=== PATIENT | female | born 1965 | race African-American/Black ===

== ENCOUNTER 2018-09-21 18:07 | Inpatient (IN) | payer OTHER ==
[~2018-09-21] VITALS: Ht 162.6 cm; Wt 110.7 kg
--- NOTE | ~2018-09-21 | EKG ---
[address] [address] ELECTROCARDIOGRAM REPORT Name: LEONID BRYANT Room #: 357-[facility] IN ..#: [id number] Admission: 09/21/18 Attend Phys: Gamal Hameed MD Discharge: 09/22/18 Date of : 65 Report #: [id number] THIS REPORT FOR: //name// [facility] ED Test Date: 2018-09-21 Test Time: 18:20:04 Pat Name: LEONID BRYANT Department: Room: [facility] Gender: F Lurer: W[place] : 1965 Requested By: Ashok Akhtar Order Number: [id number] MD: Nathaniel Colby Measurements Intervals [place] Rate: 78 P: 39 [place]: 183 QRS: -14 QRSD: 100 T: QT: 534 QTc: 609 Interpretive Statements Sinus rhythm Abnormal R-wave progression, late transition Borderline T abnormalities, nonspecific diffuse leads Compared to ECG 02/06/2013 06:02:05 T-wave abnormality still present Electronically Signed On 09-23-2018 11:09:02 COMPRESSOR SERVICE TECHNICIAN by Nathaniel Colby [email or web address] <ELECTRONICALLY SIGNED> By: Nathaniel Colby MD 09/23/18 1109 19 19 Nathaniel Colby MD /EPI
[~2018-09-21 18:07] MED LIST: ATENOLOL 50 MG50 M1 PO; GLUCOPHAGE500 MG PO; NAPROSYN500 MG PO; NEURONTIN 300M300 M2 PO; NORCO 5-325 TA1 EACH PO; TRIAMTERENE/HCT1 CA1 PO
[2018-09-21 18:08] VITALS: BP 128/75
[2018-09-21 19:43] LABS: ABSOLUTE NEUTROPHILS 4.8 thou/uL (1.4-8.2); BASOPHILS 1.2 % (0.0-2.0); HEMATOCRIT 28.9 % (37.0-47.0); HEMOGLOBIN 9.6 gm/dL (12.0-15.0); LYMPHOCYTES 24.9 % (24.0-44.0); MCH 27.9 pg (26.0-34.0); MCHC 33.2 g/dL (28.0-37.0); MONOCYTES 7.3 % (1.0-8.0); PLATELET COUNT 275 thou/uL (150-400); POLYS 65.6 % (36.0-66.0); RBC 3.45 mil/uL (4.20-5.00); RDW 15.5 % (10.5-14.5); WBC 7.3 thou/uL (4.0-11.0)
[2018-09-21 19:51] LABS: ANION GAP 11 mmol/L (7-16); BUN 15 mg/dL (7-18); CALCIUM 6.7 mg/dL (8.5-10.1); CHLORIDE 110 mmol/L (98-107); CO2 22 mmol/L (21-32); GLUCOSE 131 mg/dL (74-106); SODIUM 143 mmol/L (136-145)
[2018-09-21 19:53] LABS: POTASSIUM 2.7 mmol/L (3.5-5.1)
[2018-09-21 19:58] LABS: ALBUMIN 2.3 g/dL (3.4-5.0); LIPASE 62 U/L (73-393); SGOT 14 U/L (15-37); SGPT 18 U/L (30-65); TOTAL BILIRUBIN 0.2 mg/dL (<0.1-1.0); TOTAL PROTEIN 4.9 g/dL (6.4-8.2); TROPONIN-I <0.06 ng/mL (<0.06)
[2018-09-21 20:38] LABS: URINE BILIRUBIN NEGATIVE (Negative); URINE BLOOD TRACE (Negative); URINE CLARITY CLEAR; URINE COLOR YELLOW; URINE GLUCOSE-RANDOM* NEGATIVE (Negative); URINE KETONES NEGATIVE (Negative); URINE LEUKOCYTES-REFLEX 1+ (Negative); URINE NITRITE-REFLEX NEGATIVE (Negative); URINE PROTEIN (DIPSTICK) NEGATIVE (Negative); URINE UROBILINOGEN 0.2 E.U./dl (0.2-1.0)
[2018-09-21 20:53] LABS: URINE WBC-REFLEX 6-15 Few /HPF (0-5)
[2018-09-21 20:54] LABS: BACTERIA-REFLEX 1-9 Few /HPF (None Seen); CASTS None Seen /LPF (None Seen); CRYSTALS None Seen /LPF (None Seen); SQUAMOUS None Seen /LPF (0-3); URINE RBC 0-2 Rare /HPF (0-2)
[2018-09-21] MEDS ORDERED: PRAVACHOL40 MG PO (22:19)
[2018-09-21 22:30] VITALS: BP 111/67
[2018-09-21 22:35] VITALS: BP 111/67
[2018-09-22 04:56] VITALS: BP 104/61
[2018-09-22 07:29] LABS: HEMATOCRIT 35.7 % (37.0-47.0); HEMOGLOBIN 11.4 gm/dL (12.0-15.0); MCH 27.2 pg (26.0-34.0); MCV 84.8 fL (80.0-100.0); RBC 4.21 mil/uL (4.20-5.00); RDW 15.5 % (10.5-14.5); WBC 7.1 thou/uL (4.0-11.0)
[2018-09-22 07:38] VITALS: BP 125/91
[2018-09-22 07:53] LABS: CALCIUM 8.6 mg/dL (8.5-10.1); CREATININE 1.2 mg/dL (0.6-1.0)
[2018-09-22 07:54] LABS: POTASSIUM 4.5 mmol/L (3.5-5.1)
[2018-09-22] MEDS ORDERED: CEFUROXIME250 MG PO (09:07)
[2018-09-22 09:09] VITALS: BP 125/91
== END 2018-09-22 12:49 | disposition home or self-care (01) | DRG 690 ==
LOC: ER 18:07 → EROBS 21:53 → 3W 22:55
PROVIDERS: Emergency Medicine; Nurse Practitioner Family
DX: N39.0 Urinary tract infection, site not specified (principal); E87.6 Hypokalemia; I10 Essential (primary) hypertension; E11.9 Type 2 diabetes mellitus without complications; Z88.8 Allergy status to other drugs, medicaments and biological substances; E11.40 Type 2 diabetes mellitus with diabetic neuropathy, unspecified; T50.2X5A Adverse effect of carbonic-anhydrase inhibitors, benzothiadiazides and other diuretics, initial encounter; Z90.49 Acquired absence of other specified parts of digestive tract; Z88.2 Allergy status to sulfonamides; Z85.51 Personal history of malignant neoplasm of bladder; Z98.84 Bariatric surgery status; Z79.899 Other long term (current) drug therapy
CPT/HCPCS: 10879

== ENCOUNTER 2018-10-16 11:17 | Emergency (ER) | payer OTHER ==
[~2018-10-16] VITALS: Ht 162.6 cm; Wt 111.1 kg
[~2018-10-16 11:17] MED LIST changes: +CEFUROXIME250 MG PO; +PRAVACHOL40 MG PO
[2018-10-16] MEDS ORDERED: ATENOLOL 100MG100 MG PO (12:04)
[2018-10-16] MEDS ORDERED: KEFLEX500 M1 PO (12:05)
[2018-10-16] MEDS ORDERED: NORVASC5 MG PO (12:06)
[2018-10-16] MEDS ORDERED: ZOFRAN ODT4 MG DISSOLVE (12:07)
[2018-10-16 12:14] LABS: ABSOLUTE NEUTROPHILS 3.3 thou/uL (1.4-8.2); BASOPHILS 0.9 % (0.0-2.0); EOSINOPHILS 2.3 % (0.0-3.0); HEMATOCRIT 40.3 % (37.0-47.0); HEMOGLOBIN 13.2 gm/dL (12.0-15.0); LYMPHOCYTES 33.9 % (24.0-44.0); MCH 27.6 pg (26.0-34.0); MCHC 32.7 g/dL (28.0-37.0); MCV 84.4 fL (80.0-100.0); MONOCYTES 9.2 % (1.0-8.0); PLATELET COUNT 374 thou/uL (150-400); POLYS 53.7 % (36.0-66.0); RBC 4.78 mil/uL (4.20-5.00); RDW 16.6 % (10.5-14.5); WBC 6.2 thou/uL (4.0-11.0)
[2018-10-16 12:29] LABS: URINE BILIRUBIN NEGATIVE (Negative); URINE BLOOD TRACE (Negative); URINE CLARITY CLEAR; URINE COLOR YELLOW; URINE GLUCOSE-RANDOM* NEGATIVE (Negative); URINE KETONES NEGATIVE (Negative); URINE NITRITE-REFLEX NEGATIVE (Negative); URINE PROTEIN (DIPSTICK) NEGATIVE (Negative); URINE SPECIFIC GRAVITY <= 1.005 (1.005-1.035)
[2018-10-16 12:30] LABS: URINE LEUKOCYTES-REFLEX 3+ (Negative); URINE UROBILINOGEN 0.2 E.U./dl (0.2-1.0)
[2018-10-16 12:58] LABS: CASTS None Seen /LPF (None Seen); CRYSTALS None Seen /LPF (None Seen); SQUAMOUS 0-3 Few /LPF (0-3); URINE RBC 0-2 Rare /HPF (0-2); URINE WBC-REFLEX >25 Many /HPF (0-5)
[2018-10-16 14:39] LABS: CALCIUM 9.4 mg/dL (8.5-10.1); CREATININE 1.2 mg/dL (0.6-1.0); POTASSIUM 3.6 mmol/L (3.5-5.1)
[2018-10-16] MEDS ORDERED: FLONASE 0.05%50 MCG NASAL (14:56)
[2018-10-16] MEDS ORDERED: ONDANSETRON HCL4 M2 PO (14:56)
[2018-10-16] MEDS ORDERED: NORFLEX100 MG PO (14:56)
[2018-10-16 15:10] VITALS: BP 112/54
== END 2018-10-16 15:10 | disposition home or self-care (01) ==
LOC: ER 11:17
PROVIDERS: Physician Assistant
DX: R09.81 Nasal congestion (principal); R51 Headache; I10 Essential (primary) hypertension; E11.40 Type 2 diabetes mellitus with diabetic neuropathy, unspecified; Z88.2 Allergy status to sulfonamides; Z88.8 Allergy status to other drugs, medicaments and biological substances; Z90.49 Acquired absence of other specified parts of digestive tract; Z85.51 Personal history of malignant neoplasm of bladder

== ENCOUNTER 2020-01-20 17:33 | Inpatient (IN) | payer OTHER ==
[~2020-01-20] VITALS: Ht 162.6 cm; Wt 122.0 kg
--- NOTE | ~2020-01-20 | EKG ---
[facility] [place] [address] ELECTROCARDIOGRAM REPORT Name: LEONID BRYANT Room #: 211-P ADM IN M.R.#: [id number] Admission: 01/20/20 Attend Phys: Amarjit Pierre MD Discharge: Date of : 65 Report #: [id number] THIS REPORT FOR: cc: CINTIA OLIVERA MD, RADHIKA MD Epiphany, Epiphany MD ~ THIS REPORT FOR: //name// [facility] ED Test Date: 2020-01-20 Test Time: 17:51:25 Pat Name: LEONID BRYANT Department: Room: 211 Gender: F Compliance Intern: RADHA : 1965 Requested By: Dominique Trinidad Order Number: [id number] MD: Measurements Intervals [place] Rate: 0 P: 0 MN: QRS: 0 QRSD: T: QT: QTc: 0 Interpretive Statements All 12 leads are missing Compared to ECG 09/21/2018 18:20:04 Sinus rhythm no longer present T-wave abnormality no longer present [email or web address] By: 1751 175 Epiphany EpiphanyMD /EPI
[~2020-01-20 17:33] MED LIST changes: +ATENOLOL 100MG100 MG PO; +FLONASE 0.05%50 MCG NASAL; +KEFLEX500 M1 PO; +NORFLEX100 MG PO; +NORVASC5 MG PO; +ONDANSETRON HCL4 M2 PO; +ZOFRAN ODT4 MG DISSOLVE
[2020-01-20 18:05] LABS: BASOPHILS 1.4 % (0.0-2.0); EOSINOPHILS 2.2 % (0.0-3.0); HEMATOCRIT 40.6 % (37.0-47.0); HEMOGLOBIN 13.4 gm/dL (12.0-15.0); LYMPHOCYTES 37.5 % (24.0-44.0); MCH 28.5 pg (26.0-34.0); MCHC 32.9 g/dL (28.0-37.0); MCV 86.6 fL (80.0-100.0); MONOCYTES 6.9 % (1.0-8.0); PLATELET COUNT 359 thou/uL (150-400); RBC 4.69 mil/uL (4.20-5.00); RDW 15.2 % (10.5-14.5); WBC 7.7 thou/uL (4.0-11.0)
[2020-01-20 18:22] LABS: CALCIUM 8.8 mg/dL (8.5-10.1); CREATININE 1.3 mg/dL (0.6-1.0); POTASSIUM 3.9 mmol/L (3.5-5.1)
[2020-01-20 18:26] LABS: ALBUMIN 3.4 g/dL (3.4-5.0); TOTAL BILIRUBIN 0.2 mg/dL (<0.1-1.0); TOTAL PROTEIN 8.1 g/dL (6.4-8.2)
[2020-01-20 19:10] LABS: APTT 29.3 Seconds (24.5-32.8); PROTIME 9.7 Seconds (9.3-11.4)
[2020-01-20] MEDS ORDERED: KLOR-CON 10 ER10 MEQ PO (19:42)
[2020-01-20] MEDS ORDERED: FAMOTIDINE 20 M20 MG PO (19:43)
[2020-01-20] MEDS ORDERED: ASA81BEC PO (19:43)
[2020-01-20] MEDS ORDERED: TOPROL XL25 MG PO (19:43)
[2020-01-20] MEDS ORDERED: LIPITOR80 MG PO (19:43)
[2020-01-20] MEDS ORDERED: BRILINTA90 MG PO (19:43)
[2020-01-20 19:44] VITALS: BP 128/73
[2020-01-20 19:50] VITALS: BP 126/82
[2020-01-20 20:31] VITALS: BP 124/64
[2020-01-20 20:34] VITALS: BP 130/79
[2020-01-21 00:21] VITALS: BP 104/54
--- NOTE | 2020-01-21 04:42 | NUR ---
PT WAS AN ADMIT FROM ER @ 20:05. PT IS ADMITTED WITH SVT AND CARDIZEM DRIP IN ON. NO SIGN OF DISTRESS NOTED IN PT. PT IS STABLE AND HEART RATE IS CONTROLLED. ADMISSION ASSESSMENT, EDUCATION AND DATA COMPLETED. PT IS ALERT AND ORIENTED. DENIES ANY PAIN. PT HAS A UROSTOMY. CONTINUE TO MONITOR PT. DENIES ANY FURTHER NEEDS AT THIS TIME.
[2020-01-21 05:34] VITALS: BP 105/53
[2020-01-21 07:35] LABS: CALCIUM 8.4 mg/dL (8.5-10.1); CREATININE 1.2 mg/dL (0.6-1.0); POTASSIUM 4.1 mmol/L (3.5-5.1)
[2020-01-21 07:50] VITALS: BP 124/58
--- NOTE | 2020-01-21 08:34 | EKG ---
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 : 1965 Requested By: Rayshawn Barrera Order Number: [id number] MD: Pelon Kent Measurements Intervals [place] Rate: 172 P: 38 MD: 225 QRS: -22 QRSD: 91 T: 59 QT: 269 QTc: 455 Interpretive Statements Supraventricular tachycardia Borderline left axis deviation ST depression, probably rate related Baseline wander in lead(s) V4,V5 Compared to ECG 09/21/2018 18:20:04 SVT has replaced sinus rhythm Electronically Signed On 01-21-2020 8:32:51 CDT by Pelon Kent [email or web address] <ELECTRONICALLY SIGNED> By: Pelon [place] MD, FAC 01/21/20 0832 1738 1738 Pelon [place] MD, [facility] /EPI
--- NOTE | 2020-01-21 08:40 | EKG ---
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
--- NOTE | 2020-01-21 10:18 | 2DMMODE ---
[facility] [place] [address] 2 D/M-MODE ECHOCARDIOGRAM Name: LEONID BRYANT [facility] Room #: 211-P ADM IN M.R.#: [id number] Admission: 01/20/20 Attend Phys: Amarjit Pierre MD Discharge: Date of : 65 Report #: [id number] THIS REPORT FOR: cc: CINTIA OLIVERA MD, RADHIKA MD Lundgren, Craig H. MD [facility] ~ APPROVED REPORT Study performed: 01/21/2020 09:29:17 EXAM: Comprehensive 2D, Doppler, and color-flow Echocardiogram Patient Location: Bedside Room #: 211 Status: routine BSA: 2.22 HR: 78 bpm BP: 105/53 mmHg Rhythm: NSR Other Information Study Quality: Adequate Indications SVT. Chest pain, palpitations, SOB. Hx: ID, stents, HTN, sarcoidosis, morbid obesity. 2D Dimensions RVDd: 31.81 mm IVSd: 9.93 (7-11mm) LVOT Diam: 19.52 (18-24mm) LVDd: 48.04 mm PWd: 9.68 (7-11mm) Ascending Ao: 28.42 (22-36mm) LVDs: 32.16 (25-40mm) Aortic Root: 29.92 mm Volumes Left Atrial Volume (Systole) Single Plane 4CH: 39.61 mL Single Plane 2CH: 42.21 mL Aortic Valve AoV Peak Teo.: 1.91 m/s AO Peak Gr.: 14.64 mmHg LVOT Max P.39 mmHg LVOT Max V: 1.26 m/s RENETTA Vmax: 1.98 cm2 [facility] [address] [place] [address] 2 D/M-MODE ECHOCARDIOGRAM Name: MANNYLEONID ARABELLA Room #: 211-P [facility] IN .R.#: [id number] Admission: 01/20/20 Attend Phys: Amarjit Pierre MD Discharge: Date of : 65 Report #: [id number] Mitral Valve E/A Ratio: 0.8 MV Decel. Time: 241.31 ms MV E Max Teo.: 0.67 m/s MV A Teo.: 0.82 m/s MV PHT: 69.98 ms IVRT: 65.74 ms Pulmonary Valve PV Peak Teo.: 1.16 m/s PV Peak Gr.: 5.41 mmHg Pulmonary Vein P Vein S: 0.47 m/s P Vein D: 0.38 m/s P Vein S/D Ratio: 1.24 Tricuspid Valve RAP Estimate: 5.00 mmHg Left Ventricle The left ventricle is normal size. There is normal LV segmental wall motion. There is normal left ventricular wall thickness. Left ventricular systolic function is normal. LVEF is 60-65%. Mild diastolic dysfunction is present (impaired relaxation pattern). Right Ventricle The right ventricle is normal size. The right ventricular systolic function is normal. Atria The left atrium size is normal. The right atrium size is normal. Aortic Valve The aortic valve is normal in structure. No aortic regurgitation is present. There is no aortic valvular stenosis. Mitral Valve The mitral valve is normal in structure. Trace mitral regurgitation. No evidence of mitral valve stenosis. Tricuspid Valve The tricuspid valve is normal in structure. There is no tricuspid valve regurgitation noted. Unable to assess PA pressure. [facility] [address] [place] [address] 2 D/M-MODE ECHOCARDIOGRAM Name: MANNYLEONID [facility] Room #: 211-P ADM IN M.R.#: [id number] Admission: 01/20/20 Attend Phys: Amarjit Pierre MD Discharge: Date of : 65 Report #: [id number] Pulmonic Valve The pulmonary valve is normal in structure. Trace pulmonic regurgitation. Great Vessels The aortic root is normal in size. The ascending aorta is normal in size. IVC is normal in size and collapses >50% with inspiration. Pericardium There is no pericardial effusion. <Conclusion> Left ventricular systolic function is normal. There is normal LV segmental wall motion. LVEF is 60-65%. Mild diastolic dysfunction The aortic valve is normal in structure. No aortic regurgitation or stenosis. The mitral valve is normal in structure. No mitral regurgitation. Unable to assess pulmnary artery pressure. There is no pericardial effusion. <ELECTRONICALLY SIGNED> By: Pelon [place] MD, FACC 01/21/20 1016 1016 1016 Pelon Kent MD, FAC /INF
[2020-01-21 11:30] VITALS: BP 136/68
--- NOTE | 2020-01-21 14:20 | NUR ---
PT ALERT AND ORIENTED TIMES FOUR. VSS, IVF INFUSING PER ORDER, UROSTOMY/MALLORY TO DD. SR ON TELE. PT DENIES PAIN/SOA AT THIS TIME. PT TOLEARTES MEDS AND MEALS. PT STATES SHE HAS SOME ANXIETY ABOUT UPCOMIMG PROCEDURE TOMORROW. WILL CONTINUE TO MONITOR.
[2020-01-21 16:40] VITALS: BP 127/69
[2020-01-21 19:05] VITALS: BP 123/74
[2020-01-22 04:19] VITALS: BP 107/53
--- NOTE | 2020-01-22 05:07 | NUR ---
ASSUMED PT CARE AT 1900. PT IS ALERT AND ORIENTED WITH NO SIGN OF DISTRESS NOTED. DENIES ANY PAIN. HEART RATE CONTROLLED. UROSTOMY BAG IN PLACE. ASSESSMENT COMPLETED AND DOCUMENTED. SCHEDULED MEDS ADMINISTERED TO PT. TOLERATED PO INTAKE. PT IS NPO FOR A SVT ABLATION. CONTINUE TO MONITOR PATIENT. NO ACUTE EVENTS OVERNIGHT. DENIES ANY FURTHER NEEDS AT THIS TIME.
[2020-01-22 07:10] VITALS: BP 132/71
[2020-01-22 08:30] VITALS: BP 122/80
[2020-01-22 15:32] VITALS: BP 122/80
[2020-01-22 15:46] VITALS: BP 122/80
[2020-01-22 16:00] VITALS: BP 140/62
--- NOTE | 2020-01-22 17:06 | NUR ---
PT CARE ASSUMED APPROX 0700. ASSESSMENTS CHARTED. PT DENIES PAIN AND SOA. SR AFTER SVT ABLATION THIS SHIFT. JAVAD GROIN SITES C/D/I. DR DHILLON AT BEDSIDE IMMEDIATELY PRIOR TO PT DISMISSAL. DISCHARGE PAPERWORK AND EDUCATION REVIEWED BY AND REINFORCED BY NURSE. ALL BELONINGINGS IN PT POSESSION. PT DENIED QUESTIONS OR CONCERNS REGARDING POST HOSPITAL CARES. IV OUT, TELE BOX OFF. PT ESCORTED OFF UNIT WITH HOSPITAL STAFF.
--- NOTE | 2020-01-29 11:38 | P ---
[facility] [place] [address] PROCEDURE REPORT Name: LEONID BRYANT ARABELLA Room #: 211-P [facility] IN M.R.#: [id number] Admission: 01/20/20 Attend Phys: Amarjit Pierre MD Discharge: 01/22/20 Date of : 65 Report #: [id number] THIS REPORT FOR: cc: CINTIA OLIVERA MD, RADHIKA MD Couchonnal, Luis F. MD ~ CC: Amarjit OLIVERA PREOPERATIVE DIAGNOSIS: Supraventricular tachycardia. POSTOPERATIVE DIAGNOSIS: Typical atrioventricular sofiya reentrant tachycardia. PROCEDURES PERFORMED: 1. SVT ablation, CPT code 21387. 2. EP with left atrial pacing and recording, CPT code 24259. 3. Program stimulation pacing after IV drug infusion, CPT code 20655. 4. 3D mapping, CPT code 27258. ANESTHESIA: The patient underwent general anesthesia with no anesthesia related complications. HISTORY: The patient is a 54-year-old with history of coronary artery disease status post prior stents to the LAD back in August 2019 at the [facility], who presents with multiple recurrent episodes of SVT with shortness of breath, chest pain and presyncope. She had an inpatient echo showing normal LV size and function. She is here for urgent emergent SVT ablation. PROCEDURE IN DETAIL: The patient underwent informed consent. We discussed the details of the procedure including the risks which include but not limited to bleeding, infection, vascular damage, cardiac perforation as well as stroke or FL and damage to the elem conduction system which could require permanent pacemaker. She understood these risks and is willing to proceed. The patient was brought to the EP laboratory in a fasting and sedated state and prepped and draped in a sterile fashion. I injected lidocaine at the groin region, obtained access to the right femoral vein x 3 and the left femoral vein x 1. I placed three 6-Ecuadorean short sheaths and a 7-Ecuadorean short sheath using the modified Seldinger technique. Next, under fluoroscopy, 3 quadripolar catheters were placed at the HRA, His and RV positions and a decapolar catheter was placed in the coronary sinus for left atrial pacing and recording. Next, a basic EP study was performed. At baseline, the patient was in sinus rhythm with sinus cycle length of 835 milliseconds, MO interval 135 milliseconds, QRS duration 87 milliseconds, QT interval 420 milliseconds, AH interval 70 milliseconds, HV interval 38 milliseconds. Next, atrial burst pacing was performed and AV block was noted at 370 milliseconds. AV sofiya ERP [facility] [address] [place] [address] PROCEDURE REPORT Name: LEONID BRYANT [facility] Room #: 211-P [facility] IN .R.#: [id number] Admission: 01/20/20 Attend Phys: Amarjit Pierre MD Discharge: 01/22/20 Date of : 65 Report #: [id number] is noted at 320 milliseconds at [address] cycle length. Atrial ERP was noted at 270 milliseconds at a [address] cycle length. Next, ventricular pacing was performed and VA block was noted at 470 milliseconds. VA ERP was noted at 380 milliseconds at a [address] cycle length. VA conduction was both midline and decremental. Isoproterenol was initiated at 2 mcg per minute. AV block was noted at 290 milliseconds. Atrial ERP was noted at 240 milliseconds at a [address] cycle length. Next, I gave double atrial extrastimuli and at 234/274/500 milliseconds, the patient went into SVT with a tachycardia cycle length of 335 milliseconds, a septal VA time of 35 milliseconds. Ventricular entrainment was performed and there was a VAHV response consistent with typical AV sofiya reentrant tachycardia. I was able to induce typical AVNRT 3 or 4 times, easily and could demonstrate a VAHV response consistently. As such, the patient was diagnosed with typical AV sofiya reentrant tachycardia. 3D MAPPING AND ABLATION: Next, I removed my HRA catheter and sheath and placed a SR0 sheath and 4 mm ablation catheter into the right atrium. A detailed 3D geometry of the right atrium was created with specific emphasis of the His bundle and slow pathway region. Next, ablation was performed at 50 mora and 55 degrees. The first 3 lesions resulted in no junctionals. I moved up slightly and had a nicer atrial signal with a good ratio and lesions 4, 5 and 6 resulted in nice slow junctionals, each of around 50 seconds in duration. As such, we had great junctional response and decided to perform post-ablation testing. POST-ABLATION TESTING: The patient was started back on isoproterenol 2 mcg per minute. AV block was noted at 280 milliseconds. Atrial ERP was noted at 210 milliseconds at [address] cycle length. Ventricular pacing was also performed. We tested for approximately 30 minutes on iso and could no longer induce AVNRT. We had 1 AV sofiya echo noted. We turned off the isoproterenol and continued testing and no further SVT could be induced. Post-ablation, the patient remained in sinus rhythm with sinus cycle length of 720 milliseconds, MO interval 135 milliseconds, QRS duration 78 milliseconds, QT interval 320 milliseconds, AH interval 66 milliseconds, HV interval 38 milliseconds. As such, the patient awoke neurologically and hemodynamically intact with no complications and no significant bleeding. CONCLUSIONS: 1. Successful ablation of typical AV sofiya reentrant tachycardia. 2. Normal SA sofiya function. 3. Normal AV sofiya function. [facility] [address] [place] [address] PROCEDURE REPORT Name: LEONID BRYANT Room #: 211-P DIS IN M.R.#: [id number] Admission: 01/20/20 Attend Phys: Amarjit Pierre MD Discharge: 01/22/20 Date of : 65 Report #: [id number] 4. Normal His-Purkinje function. 5. No other inducible arrhythmias on or off isoproterenol. <ELECTRONICALLY SIGNED> By: Nathaniel Colby MD 01/29/20 1138 1222 1247 Nathaniel Colby MD /nt
== END 2020-01-22 16:30 | disposition home or self-care (01) | DRG 274 ==
LOC: ER 17:33 → EROBS 19:23 → 2N 19:23
PROVIDERS: Nurse Practitioner Family; Physician Assistant; ADMIT Hospitalist
PROC: 02583ZZ Destruction of Conduction Mechanism, Percutaneous Approach (ICD-10-PCS; principal; 2020-01-22)
PROC: 02K83ZZ Map Conduction Mechanism, Percutaneous Approach (ICD-10-PCS; principal; 2020-01-22)
PROC: 4A023FZ Measurement of Cardiac Rhythm, Percutaneous Approach (ICD-10-PCS; principal; 2020-01-22)
PROC: 4A0234Z Measurement of Cardiac Electrical Activity, Percutaneous Approach (ICD-10-PCS; principal; 2020-01-22)
DX: I47.1 Supraventricular tachycardia (principal); I10 Essential (primary) hypertension; I25.10 Atherosclerotic heart disease of native coronary artery without angina pectoris; E11.40 Type 2 diabetes mellitus with diabetic neuropathy, unspecified; E78.5 Hyperlipidemia, unspecified; E78.00 Pure hypercholesterolemia, unspecified; Z90.49 Acquired absence of other specified parts of digestive tract; Z88.2 Allergy status to sulfonamides; Z88.8 Allergy status to other drugs, medicaments and biological substances; Z95.5 Presence of coronary angioplasty implant and graft; Z08 Encounter for follow-up examination after completed treatment for malignant neoplasm; Z85.51 Personal history of malignant neoplasm of bladder; Z82.49 Family history of ischemic heart disease and other diseases of the circulatory system; Z79.82 Long term (current) use of aspirin; Z79.899 Other long term (current) drug therapy
CPT/HCPCS: 10081; 62110; 62900; 70005

== ENCOUNTER 2020-05-16 12:00 | Emergency (ER) | payer OTHER ==
[~2020-05-16] VITALS: Ht 162.6 cm; Wt 119.8 kg
[~2020-05-16 12:00] MED LIST changes: +ASA81BEC PO; +BRILINTA90 MG PO; +FAMOTIDINE 20 M20 MG PO; +KLOR-CON 10 ER10 MEQ PO; +LIPITOR80 MG PO; +TOPROL XL25 MG PO
[2020-05-16 12:49] LABS: HEMATOCRIT 42.4 % (37.0-47.0); HEMOGLOBIN 13.8 gm/dL (12.0-15.0); MCH 28.2 pg (26.0-34.0); MCHC 32.6 g/dL (28.0-37.0); MCV 86.6 fL (80.0-100.0); RBC 4.89 mil/uL (4.20-5.00); RDW 14.6 % (10.5-14.5); WBC 9.3 thou/uL (4.0-11.0)
[2020-05-16 12:57] LABS: ANION GAP 13 mmol/L (7-16); BUN 17 mg/dL (7-18); CALCIUM 9.1 mg/dL (8.5-10.1); CHLORIDE 104 mmol/L (98-107); CO2 23 mmol/L (21-32); CREATININE 1.3 mg/dL (0.6-1.0); GLUCOSE 84 mg/dL (74-106); POTASSIUM 3.9 mmol/L (3.5-5.1); SODIUM 140 mmol/L (136-145)
[2020-05-16 13:02] LABS: ALBUMIN 3.7 g/dL (3.4-5.0); SGOT 13 U/L (15-37); SGPT 12 U/L (30-65); TOTAL BILIRUBIN 0.4 mg/dL (0.2-1.0); TOTAL PROTEIN 8.3 g/dL (6.4-8.2); TROPONIN-I <0.06 ng/mL (<0.06)
[2020-05-16 13:38] LABS: PLATELET COUNT 310 thou/uL (150-400); PLATELET ESTIMATE NORMAL
[2020-05-16] MEDS ORDERED: NORCO 5-325 TA1 EAC2 PO (14:49)
[2020-05-16 15:07] VITALS: BP 130/48
--- NOTE | 2020-05-18 16:00 | EKG ---
[facility] [place] [address] ELECTROCARDIOGRAM REPORT Name: LEONID BRYANT [id number] Admission: 05/16/20 Attend Phys: Discharge: 05/16/20 Date of : 65 Report #: [id number] THIS REPORT FOR: cc: ANGELINA - Sharon family physician/PCP ANGELINA - Sharon family physician/PCP Nathaniel Colby MD ~ THIS REPORT FOR: //name// 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 : 1965 Requested By: Dominique Trinidad Order Number: [id number] MD: Nathaniel Colby Measurements Intervals [place] Rate: 72 P: 69 [place]: 165 QRS: 1 QRSD: 94 T: 27 QT: 384 QTc: 421 Interpretive Statements Sinus rhythm Probable left atrial enlargement Baseline wander in lead(s) I,II,aVR Compared to ECG 01/21/2020 07:27:04 No significant changes Electronically Signed On 05-18-2020 16:00:15 CDT by Nathaniel Colby [email or web address] <ELECTRONICALLY SIGNED> By: Nathaniel Colby MD 05/18/20 1600 1201 1201 Nathaniel Colby MD /EPI
== END 2020-05-16 15:07 | disposition home or self-care (01) ==
LOC: ER 12:00
PROVIDERS: Emergency Medicine
DX: R07.89 Other chest pain (principal); I10 Essential (primary) hypertension; E78.5 Hyperlipidemia, unspecified; E11.40 Type 2 diabetes mellitus with diabetic neuropathy, unspecified; I25.2 Old myocardial infarction; Z98.61 Coronary angioplasty status; Z90.49 Acquired absence of other specified parts of digestive tract; Z98.84 Bariatric surgery status; Z90.721 Acquired absence of ovaries, unilateral; Z79.899 Other long term (current) drug therapy; Z79.82 Long term (current) use of aspirin; Z88.8 Allergy status to other drugs, medicaments and biological substances; Z88.5 Allergy status to narcotic agent; Z88.2 Allergy status to sulfonamides